=== PATIENT | male | born 1980 | race Caucasian/White ===

== ENCOUNTER 2016-07-22 08:54 | Emergency (ER) | payer SELFPAY ==
[~2016-07-22] VITALS: Ht 177.8 cm; Wt 72.6 kg
[2016-07-22 09:00] VITALS: BP_SYST 126
== END 2016-07-22 09:24 | disposition home or self-care (01) ==
LOC: SED 08:54
DX: S02.2XXG Fracture of nasal bones, subsequent encounter for fracture with delayed healing (principal); S01.511D Laceration without foreign body of lip, subsequent encounter; Y04.8XXD Assault by other bodily force, subsequent encounter
CPT/HCPCS: 99283